=== PATIENT | male | born 1990 | race Caucasian/White ===

== ENCOUNTER 2017-10-06 21:25 | Emergency (ER) | payer BC, OTHER ==
--- NOTE | 2017-10-06 21:46 | EDM.PDOC ---
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 He denies vomiting diarrhea back or abdominal pain Review of systems: As per history of present illness and below otherwise all systems reviewed and negative. Past medical history: As per history of present illness and as reviewed below otherwise noncontributory. Surgical history: As per history of present illness and as reviewed below otherwise noncontributory. Social history: No reported history of drug or alcohol abuse. Family history: As per history of present illness and as reviewed below otherwise noncontributory. Physical exam: HEENT: Atraumatic, normocephalic, pupils reactive, negative for conjunctival pallor or scleral icterus, mucous membranes moist, throat clear, neck supple, nontender, trachea midline. Lungs: Clear to auscultation, breath sounds equal bilaterally, chest nontender. Heart: S1S2, regular, negative for clicks, rubs, or JVD. Abdomen: Soft, nondistended, nontender. Negative for masses or hepatosplenomegaly. Negative for costovertebral tenderness. Pelvis: Stable nontender. Genitourinary: Deferred. Rectal: Deferred. Extremities: Atraumatic, negative for cords or calf pain. Neurovascular unremarkable. Neuro: Awake, alert, oriented. Cranial nerves II through XII unremarkable. Cerebellum unremarkable. Motor and sensory unremarkable throughout. Exam nonfocal. Diagnostics: EBC CMP UA urine culture and sensitivity influenza screen chest x-ray Therapeutics: None Impression: #1 history of hematuria #2 history of fever Definitive disposition and diagnosis as appropriate pending reevaluation and review of above. - Related Data Allergies Allergy/AdvReac Type Severity Reaction Status Date / Time No Known Allergies Allergy Verified 10/06/17 21:47 Home Meds: Home Meds Tamsulosin [Flomax] 0.4 mg PO DAILY 10/06/17 [History] ED ROS GENERAL - Review of Systems Review Of Systems: ROS reveals no pertinent complaints other than HPI. ED EXAM, GENERAL - Physical Exam Exam: See Below (See dictation) Course - Vital Signs Last Recorded V/S: Last Vital Signs Temp 37.9 C 10/07/17 00:50 Pulse 101 H 10/07/17 00:50 Resp 18 10/07/17 00:50 BP 106/67 10/07/17 00:50 Pulse Ox 95 10/07/17 00:50 - Orders/Labs/Meds Orders: Active Orders 24 hr Category Date Time Status Chest 1V Frontal [CR] Stat Exams 10/06/17 21:48 Taken CULTURE BLOOD [BC] Stat Lab 10/07/17 00:45 Received CULTURE BLOOD [BC] Stat Lab 10/07/17 00:45 Received CULTURE URINE [RM] Stat Lab 10/06/17 21:45 Received Sodium Chloride 0.9% [Normal Saline] 1,000 ml Med 10/07/17 00:39 Active IV STAT Blood Culture x2 Reflex Set [OM.PC] Stat Oth 10/07/17 00:34 Ordered Medication Orders Sodium Chloride (Normal Saline) 1,000 mls @ 999 mls/hr IV STAT ONE Stop: 10/07/17 01:39 Last Admin: 10/07/17 00:49 Dose: 999 mls/hr Labs: Laboratory Tests 10/06/17 10/06/17 10/06/17 Range/Units 21:45 22:03 22:03 WBC 8.75 (4.0-11.0) K/uL RBC 5.48 (4.50-5.90) M/uL Hgb 17.1 H (13.0-17.0) g/dL Hct 48.2 (38.0-50.0) % MCV 88.0 (80.0-98.0) fL MCH 31.2 (27.0-32.0) pg MCHC 35.5 (31.0-37.0) g/dL RDW Std Deviation 40.0 (28.0-62.0) fl RDW Coeff of Rickey 13 (11.0-15.0) % Plt Count 210 (150-400) K/uL MPV 11.30 (7.40-12.00) fL Neut % (Auto) 83.3 H (48.0-80.0) % Lymph % (Auto) 7.5 L (16.0-40.0) % [place] % (Auto) 8.8 (0.0-15.0) % Eos % (Auto) 0.1 (0.0-7.0) % Baso % (Auto) 0.3 (0.0-1.5) % Neut # (Auto) 7.3 H (1.4-5.7) K/uL Lymph # (Auto) 0.7 (0.6-2.4) K/uL [place] # (Auto) 0.8 (0.0-0.8) K/uL Eos # (Auto) 0.0 (0.0-0.7) K/uL Baso # (Auto) 0.0 (0.0-0.1) K/uL Nucleated RBC % 0.0 /100WBC Nucleated RBCs # 0 K/uL Lactate (0.20-2.00) mmol/L Sodium 136 (136-146) mmol/L Potassium 4.1 (3.5-5.1) mmol/L Chloride 104 (98-110) mmol/L Carbon Dioxide 22 (21-31) mmol/L BUN 12 (6.0-23.0) mg/dL Creatinine 1.1 (0.6-1.5) mg/dL Est Cr Clr Drug Dosing 111.98 mL/min Estimated GFR (MDRD) > 60.0 ml/min Glucose 98 (60-110) mg/dL Calcium 9.3 (8.8-10.8) mg/dL Total Bilirubin 0.7 (0.1-1.5) mg/dL AST 34 (5-40) IU/L ALT 84 H (8-54) IU/L Alkaline Phosphatase 56 (40-150) Total Protein 7.6 (6.0-8.0) g/dL Albumin 4.3 (3.5-5.0) g/dL Globulin 3.3 (2.0-3.5) g/dL Albumin/Globulin Ratio 1.3 (1.3-2.8) Urine Color YELLOW Urine Appearance CLEAR Urine pH 6.0 (5.0-8.0) Ur Specific [place] >= 1.030 (1.001-1.035) Urine Protein NEGATIVE (NEGATIVE) mg/dL Urine Glucose (UA) NEGATIVE (NEGATIVE) mg/dL Urine Ketones NEGATIVE (NEGATIVE) mg/dL Urine Occult Blood MODERATE (NEGATIVE) Urine Nitrite NEGATIVE (NEGATIVE) Urine Bilirubin NEGATIVE (NEGATIVE) Urine Urobilinogen 0.2 (<2.0) EU/dL Ur Leukocyte Esterase NEGATIVE (NEGATIVE) Urine RBC 1-3 (0-2/HPF) Urine WBC 0-3 (0-5/HPF) Ur Epithelial Cells OCCASIONAL (NONE-FEW) Urine Bacteria FEW (NEGATIVE) Urine Mucus LIGHT (NONE-MOD) 10/07/17 Range/Units 00:43 WBC (4.0-11.0) K/uL RBC (4.50-5.90) M/uL Hgb (13.0-17.0) g/dL Hct (38.0-50.0) % MCV (80.0-98.0) fL MCH (27.0-32.0) pg MCHC (31.0-37.0) g/dL RDW Std Deviation (28.0-62.0) fl RDW Coeff of Rickey (11.0-15.0) % Plt Count (150-400) K/uL MPV (7.40-12.00) fL Neut % (Auto) (48.0-80.0) % Lymph % (Auto) (16.0-40.0) % [place] % (Auto) (0.0-15.0) % Eos % (Auto) (0.0-7.0) % Baso % (Auto) (0.0-1.5) % Neut # (Auto) (1.4-5.7) K/uL Lymph # (Auto) (0.6-2.4) K/uL [place] # (Auto) (0.0-0.8) K/uL Eos # (Auto) (0.0-0.7) K/uL Baso # (Auto) (0.0-0.1) K/uL Nucleated RBC % /100WBC Nucleated RBCs # K/uL Lactate 1.3 (0.20-2.00) mmol/L Sodium (136-146) mmol/L Potassium (3.5-5.1) mmol/L Chloride (98-110) mmol/L Carbon Dioxide (21-31) mmol/L BUN (6.0-23.0) mg/dL Creatinine (0.6-1.5) mg/dL Est Cr Clr Drug Dosing mL/min Estimated GFR (MDRD) ml/min Glucose (60-110) mg/dL Calcium (8.8-10.8) mg/dL Total Bilirubin (0.1-1.5) mg/dL AST (5-40) IU/L ALT (8-54) IU/L Alkaline Phosphatase (40-150) Total Protein (6.0-8.0) g/dL Albumin (3.5-5.0) g/dL Globulin (2.0-3.5) g/dL Albumin/Globulin Ratio (1.3-2.8) Urine Color Urine Appearance Urine pH (5.0-8.0) Ur Specific [place] (1.001-1.035) Urine Protein (NEGATIVE) mg/dL Urine Glucose (UA) (NEGATIVE) mg/dL Urine Ketones (NEGATIVE) mg/dL Urine Occult Blood (NEGATIVE) Urine Nitrite (NEGATIVE) Urine Bilirubin (NEGATIVE) Urine Urobilinogen (<2.0) EU/dL Ur Leukocyte Esterase (NEGATIVE) Urine RBC (0-2/HPF) Urine WBC (0-5/HPF) Ur Epithelial Cells (NONE-FEW) Urine Bacteria (NEGATIVE) Urine Mucus (NONE-MOD) Meds: Medications Generic Name Dose Route Start Last Admin Trade Name Freq PRN Reason Stop Dose Admin Sodium Chloride 1,000 mls @ 999 mls/hr 10/07/17 00:39 10/07/17 00:49 Normal Saline IV 10/07/17 01:39 999 mls/hr STAT ONE Administration Discontinued Medications Generic Name Dose Route Start Last Admin Trade Name Freq PRN Reason Stop Dose Admin Acetaminophen 1,000 mg 10/06/17 23:37 10/06/17 23:48 Tylenol Extra Strength PO 10/06/17 23:38 1,000 mg ONETIME ONE Administration Departure - Departure Time of Disposition: 01:38 Disposition: Home, Self-Care 01 Condition: Good Clinical Impression: Fever - Discharge Information Referrals: PCP,None [Primary Care Provider] - Forms: ED Department Discharge Additional Instructions: The following information is given to patients seen in the emergency department who are being discharged to home. This information is to outline your options for follow-up care. We provide all patients seen in our emergency department with a follow-up referral. The need for follow-up, as well as the timing and circumstances, are variable depending upon the specifics of your emergency department visit. If you don't have a primary care physician on staff, we will provide you with a referral. We always advise you to contact your personal physician following an emergency department visit to inform them of the circumstance of the visit and for follow-up with them and/or the need for any referrals to a consulting specialist. The emergency department will also refer you to a specialist when appropriate. This referral assures that you have the opportunity for followup care with a specialist. All of these measure are taken in an effort to provide you with optimal care, which includes your followup. Under all circumstances we always encourage you to contact your private physician who remains a resource for coordinating your care. When calling for followup care, please make the office aware that this follow-up is from your recent emergency room visit. If for any reason you are refused follow-up, please contact the [facility] emergency department at and asked to speak to the emergency department charge nurse. [facility] [address] [place] [id number] Push fluids follow-up primary medical doctor and/or clinic 1-2 days call to schedule appointment return as needed as discussed - My Orders Last 24 Hours: My Active Orders 10/06/17 21:45 CULTURE URINE [RM] Stat 10/06/17 21:48 Chest 1V Frontal [CR] Stat 10/07/17 00:34 Blood Culture x2 Reflex Set [OM.PC] Stat 10/07/17 00:39 Sodium Chloride 0.9% [Normal Saline] 1,000 ml IV STAT 10/07/17 00:45 CULTURE BLOOD [BC] Stat CULTURE BLOOD [BC] Stat - Assessment/Plan Last 24 Hours: My Active Orders 10/06/17 21:45 CULTURE URINE [RM] Stat 10/06/17 21:48 Chest 1V Frontal [CR] Stat 10/07/17 00:34 Blood Culture x2 Reflex Set [OM.PC] Stat 10/07/17 00:39 Sodium Chloride 0.9% [Normal Saline] 1,000 ml IV STAT 10/07/17 00:45 CULTURE BLOOD [BC] Stat CULTURE BLOOD [BC] Stat
[2017-10-06 22:38] LABS: CHLORIDE,CL 104 mmol/L (98-110); SODIUM,NA 136 mmol/L (136-146)
[2017-10-06] MEDS ORDERED: Acetaminophen 500 MG Tab PO ONE (23:37)
[2017-10-07] MEDS ORDERED: Sodium Chloride 0.9% 1,000 ML IV ONE (00:39)
--- NOTE | 2017-10-09 13:01 | CR ---
EXAM DATE: 10/06/17 PATIENT'S AGE: 27 Patient: [facility] Facility: [place], [place] Site . Site : 1990 Study: XRay Chest [id number]/26/2018 10:09:59 PM Ordering Physician: Shannon Sheldon Final Report: HISTORY: Cough and congestion. FINDINGS: AP portable chest radiograph demonstrates a normal cardiac silhouette. Pulmonary vasculature and terry are normal. No lobar consolidation or pleural effusion is seen. IMPRESSION: No acute cardiopulmonary disease. Dictated by Kim Chery MD @ 10/06/2017 10:33:04 PM Dictated by: Kim Chery MD @ 10/06/2017 22:33:13 (Electronic Signature) Report Signed by Proxy. [facility]
== END 2017-10-07 00:45 | disposition home or self-care (01) ==
LOC: MW.ED 21:25 → EDSEX 21:25 → MW.ED 10-07 00:45
DX: R50.9 Fever, unspecified (principal)
CPT/HCPCS: 36415; 71045; 80053; 81001; 83605; 85025; 87040; 87086; 87804; 96360; 99284; A9270; J7040

== ENCOUNTER 2018-01-23 22:41 | Emergency (ER) | payer OTHER, BC ==
[2018-01-23] MEDS ORDERED: Ketorolac 30 MG/ML SDV IVPUSH ONE (23:02)
[2018-01-23] MEDS ORDERED: Ondansetron 4 MG/2 ML SDV IVPUSH ONE (23:02)
[2018-01-23] MEDS ORDERED: Sodium Chloride 0.9% 1,000 ML IV ONE (23:02)
--- NOTE | 2018-01-23 23:03 | EDM.PDOC ---
ED HPI GENERAL MEDICAL PROBLEM - General Chief Complaint: Flank Pain Stated Complaint: PT HAS BACK PAIN Time Seen by Provider: 01/23/18 23:03 Source of Information: Reports: Patient - History of Present Illness INITIAL COMMENTS - FREE TEXT/NARRATIVE: HISTORY AND PHYSICAL: History of present illness: [Patient presents with 5 out of 10 right flank pain consistent with previous history of renal stones patient has passed several stones in the past. Today no fever nausea vomiting chills sweats no chest pain shortness breath headache dizziness palpitation no bowel symptoms some difficulty initiating urination ] Review of systems: As per history of present illness and below otherwise all systems reviewed and negative. Past medical history: As per history of present illness and as reviewed below otherwise noncontributory. Surgical history: As per history of present illness and as reviewed below otherwise noncontributory. Social history: No reported history of drug or alcohol abuse. Family history: As per history of present illness and as reviewed below otherwise noncontributory. Physical exam: HEENT: Atraumatic, normocephalic, pupils reactive, negative for conjunctival pallor or scleral icterus, mucous membranes moist, throat clear, neck supple, nontender, trachea midline. Lungs: Clear to auscultation, breath sounds equal bilaterally, chest nontender. Heart: S1S2, regular, negative for clicks, rubs, or JVD. Abdomen: Soft, nondistended, nontender. Negative for masses or hepatosplenomegaly. Negative for costovertebral tenderness. Pelvis: Stable nontender. Genitourinary: Deferred. Rectal: Deferred. Extremities: Atraumatic, negative for cords or calf pain. Neurovascular unremarkable. Neuro: Awake, alert, oriented. Cranial nerves II through XII unremarkable. Cerebellum unremarkable. Motor and sensory unremarkable throughout. Exam nonfocal. Diagnostics: [CBC CMP UA with culture CT abdomen pelvis with and without contrast ] Therapeutics: [1 L saline bolus Zofran 8 mg IV Toradol 30 mg IV Solu-Medrol 125 milligrams IV Flomax 0.8 mg by mouth Filter equipment Return stone the pathology [place] Zofran ] Impression: [ ureteral stone 4 mm ] Definitive disposition and diagnosis as appropriate pending reevaluation and review of above. right flank Pain Score (Numeric/FACES): 8 - Related Data Allergies Allergy/AdvReac Type Severity Reaction Status Date / Time No Known Allergies Allergy Verified 01/23/18 22:47 Home Meds: Home Meds . [No Known Home Meds] 01/23/18 [History] Past Medical History Genitourinary History: Reports: Renal Calculus Dermatologic History: Reports: None - Infectious Disease History Infectious Disease History: Reports: Chicken Pox - Past Surgical History Male Surgical History: Reports: None Social & Family History - Family History Family Medical History: Noncontributory - Caffeine Use Caffeine Use: Reports: None ED ROS GENERAL - Review of Systems Review Of Systems: ROS reveals no pertinent complaints other than HPI. ED EXAM, GENERAL - Physical Exam Exam: See Below Course - Vital Signs Last Recorded V/S: Last Vital Signs Temp 99.1 F 01/23/18 22:41 Pulse 78 01/24/18 01:13 Resp 17 01/24/18 01:13 BP 125/68 01/24/18 01:13 Pulse Ox 95 01/24/18 01:13 - Orders/Labs/Meds Orders: Active Orders 24 hr Category Date Time Status RT Aerosol Therapy [RC] ASDIRECTED Care 01/23/18 23:05 Active Abdomen Pelvis w wo Cont [CT] Stat Exams 01/23/18 23:20 Taken CULTURE URINE [RM] Stat Lab 01/23/18 23:20 Ordered UA W/MICROSCOPIC [URIN] Stat Lab 01/23/18 23:20 Ordered Labs: Laboratory Tests 01/23/18 01/23/18 01/23/18 Range/Units 21:34 21:34 23:20 WBC 7.89 (4.0-11.0) K/uL RBC 5.49 (4.50-5.90) M/uL Hgb 16.4 (13.0-17.0) g/dL Hct 47.1 (38.0-50.0) % MCV 85.8 (80.0-98.0) fL MCH 29.9 (27.0-32.0) pg MCHC 34.8 (31.0-37.0) g/dL RDW Std Deviation 40.2 (28.0-62.0) fl RDW Coeff of Rickey 13 (11.0-15.0) % Plt Count 239 (150-400) K/uL MPV 11.50 (7.40-12.00) fL Neut % (Auto) 55.5 (48.0-80.0) % Lymph % (Auto) 30.4 (16.0-40.0) % [place] % (Auto) 12.5 (0.0-15.0) % Eos % (Auto) 1.0 (0.0-7.0) % Baso % (Auto) 0.6 (0.0-1.5) % Neut # (Auto) 4.4 (1.4-5.7) K/uL Lymph # (Auto) 2.4 (0.6-2.4) K/uL [place] # (Auto) 1.0 H (0.0-0.8) K/uL Eos # (Auto) 0.1 (0.0-0.7) K/uL Baso # (Auto) 0.1 (0.0-0.1) K/uL Nucleated RBC % 0.0 /100WBC Nucleated RBCs # 0 K/uL Sodium 140 (136-148) mmol/L Potassium 3.4 L (3.5-5.1) mmol/L Chloride 103 (98-107) mmol/L Carbon Dioxide 27.3 (21.0-32.0) mmol/L BUN 21 H (7.0-18.0) mg/dL Creatinine 1.3 (0.8-1.3) mg/dL Est Cr Clr Drug Dosing 94.75 mL/min Estimated GFR (MDRD) > 60.0 ml/min Glucose 115 H (74-106) mg/dL Calcium 9.9 (8.5-10.1) mg/dL Total Bilirubin 0.6 (0.2-1.0) mg/dL AST 25 (15-37) IU/L ALT 59 (14-63) IU/L Alkaline Phosphatase 56 (46-116) U/L Total Protein 8.1 (6.4-8.2) g/dL Albumin 4.7 (3.4-5.0) g/dL Globulin 3.4 (2.0-3.5) g/dL Albumin/Globulin Ratio 1.4 (1.3-2.8) Lipase 160 (73-393) U/L Urine Color YELLOW Urine Appearance CLEAR Urine pH 6.0 (5.0-8.0) Ur Specific [place] 1.015 (1.001-1.035) Urine Protein NEGATIVE (NEGATIVE) mg/dL Urine Glucose (UA) NEGATIVE (NEGATIVE) mg/dL Urine Ketones 40 H (NEGATIVE) mg/dL Urine Occult Blood MODERATE (NEGATIVE) Urine Nitrite NEGATIVE (NEGATIVE) Urine Bilirubin MODERATE H (NEGATIVE) Urine Ictotest NEGATIVE Urine Urobilinogen 0.2 (<2.0) EU/dL Ur Leukocyte Esterase NEGATIVE (NEGATIVE) Urine RBC 3-5 (0-2/HPF) Urine WBC 0-1 (0-5/HPF) Ur Epithelial Cells RARE (NONE-FEW) Urine Bacteria RARE (NEGATIVE) Meds: Medications Discontinued Medications Generic Name Dose Route Start Last Admin Trade Name Freq PRN Reason Stop Dose Admin Sodium Chloride 1,000 mls @ 999 mls/hr 01/23/18 23:02 01/23/18 23:19 Normal Saline IV 01/24/18 00:02 999 mls/hr STAT ONE Administration Iopamidol 100 ml 01/24/18 00:33 01/24/18 00:35 Isovue-370 (76%) IVPUSH 01/24/18 00:34 100 ml ONETIME STA Administration Ketorolac Tromethamine 30 mg 01/23/18 23:02 01/23/18 23:21 Toradol IVPUSH 01/23/18 23:03 30 mg ONETIME ONE Administration Methylprednisolone Sodium Succinate 125 mg 01/24/18 00:41 01/24/18 01:10 Solu-Medrol IVPUSH 01/24/18 00:42 125 mg ONETIME ONE Administration Ondansetron HCl 8 mg 01/23/18 23:02 01/23/18 23:21 Zofran IVPUSH 01/23/18 23:03 8 mg ONETIME ONE Administration Tamsulosin HCl 0.8 mg 01/24/18 08:30 Flomax PO PCBREAKFAST RUBENS Tamsulosin HCl 0.8 mg 01/24/18 01:00 01/24/18 01:09 Flomax PO 01/24/18 01:01 0.8 mg ONETIME ONE Administration Departure - Departure Time of Disposition: 01:17 Disposition: Home, Self-Care 01 Condition: Good Clinical Impression: Ureteral stone - Discharge Information Referrals: PCP,None [Primary Care Provider] - Forms: ED Department Discharge Additional Instructions: Medication as prescribed Alcohol or driving on narcotic pain medication Filter urine and return stone to primary care or urology for testing Return if symptoms persist or worsen or if intractable pain or vomiting develo , return to ER if fever temperature over 100.4 develops [facility] [address] [place] [id number] [facility] [place] [facility] [address] [place] [id number] The following information is given to patients seen in the emergency department who are being discharged to home. This information is to outline your options for follow-up care. We provide all patients seen in our emergency department with a follow-up referral. The need for follow-up, as well as the timing and circumstances, are variable depending upon the specifics of your emergency department visit. If you don't have a primary care physician on staff, we will provide you with a referral. We always advise you to contact your personal physician following an emergency department visit to inform them of the circumstance of the visit and for follow-up with them and/or the need for any referrals to a consulting specialist. The emergency department will also refer you to a specialist when appropriate. This referral assures that you have the opportunity for follow-up care with a specialist. All of these measure are taken in an effort to provide you with optimal care, which includes your follow-up. Under all circumstances we always encourage you to contact your private physician who remains a resource for coordinating your care. When calling for follow-up care, please make the office aware that this follow-up is from your recent emergency room visit. If for any reason you are refused follow-up, please contact the [facility] emergency department at and asked to speak to the emergency department charge nurse. - My Orders Last 24 Hours: My Active Orders 01/23/18 23:05 RT Aerosol Therapy [RC] ASDIRECTED 01/23/18 23:20 Abdomen Pelvis w wo Cont [CT] Stat CULTURE URINE [RM] Stat UA W/MICROSCOPIC [URIN] Stat - Assessment/Plan Last 24 Hours: My Active Orders 01/23/18 23:05 RT Aerosol Therapy [RC] ASDIRECTED 01/23/18 23:20 Abdomen Pelvis w wo Cont [CT] Stat CULTURE URINE [RM] Stat UA W/MICROSCOPIC [URIN] Stat
[2018-01-23] MEDS ORDERED: Albuterol 0.083% 2.5 MG/3 ML Neb Soln NEB ONE (23:04)
[2018-01-23 23:52] LABS: CHLORIDE,CL 103 mmol/L (98-107); SODIUM,NA 140 mmol/L (136-148)
[2018-01-24] MEDS ORDERED: Iopamidol 755 Mg/ML 100 ML Bottle IVPUSH STA (00:33)
[2018-01-24] MEDS ORDERED: methylPREDNISolone Sodium Succinate 125 MG/2 ML SDV IVPUSH ONE (00:41)
[2018-01-24] MEDS ORDERED: Tamsulosin 0.4 MG Cap.ER PO ONE (01:00)
[2018-01-24] MEDS ORDERED: Tamsulosin 0.4 MG Cap.ER PO SCH (08:30)
--- NOTE | 2018-01-24 17:28 | CT ---
EXAM DATE: 01/23/18 PATIENT'S AGE: 27 Patient: KAREN DORANTES Facility: [place], [place] Site . Site : 1990 Study: CT Abdomen/Pelvis W/ and W/O Cont [id number]/16/2018 12:38:00 AM Ordering Physician: Herve Guerrero Final Report: INDICATION : Right flank pain. History of kidney stones. TECHNIQUE : Noncontrast and postcontrast CT scan of the abdomen and pelvis. Precontrast images followed by IV contrast Post contrast imaging in the nephrographic and delayed phases. IV Contrast: Isovue 370 100 mL Please note that all CT scans at this facility use dose modulation, iterative reconstruction and/or weight-based dosing when appropriate to reduce radiation dose to as low as reasonably achievable(ALARA). COMPARISON: None. FINDINGS : Both kidneys are normal size and position. No renal mass lesions. Mild degree of right hydronephrosis and dilatation of the right ureter. 2 millimeter right renal calculus on series 201, image 65. Obstructing right UVJ calculus measures 4 millimeters on series 201, image 134. On coronal reformat, right UVJ calculus measures 5 millimeters on series 303, image 67. On delayed imaging, symmetric excretion of contrast by the collecting systems. No significant contrast opacification of the distal right ureter. No left renal or ureteral calculi. Bladder is unremarkable Prostate is unremarkable. No abdominal or pelvic mass, ascites, or adenopathy. Bowel loops show normal caliber. Normal appendix. Liver, spleen, adrenal glands and pancreas unremarkable. No calcified gallstones. Lung bases are clear. No suspicious skeletal lesions. IMPRESSION : 1. Obstructing right UVJ calculus, measuring 4 x 5 millimeters. 2. 2 millimeter right renal calculus. 3. No obstructing left renal or ureteral calculi. 4. Normal appendix. Dictated by Tarik Gatica MD @ 01/24/2018 1:06:23 AM Please note that all CT scans at this facility use dose modulation, iterative reconstruction, and/or weight-based dosing when appropriate to reduce radiation dose to as low as reasonably achievable. Dictated by: Tarik Gatica MD @ 01/24/2018 01:06:28 (Electronic Signature) MTDD
== END 2018-01-24 01:37 | disposition home or self-care (01) ==
LOC: MW.ED 22:41
DX: N13.2 Hydronephrosis with renal and ureteral calculous obstruction (principal)
CPT/HCPCS: 36415; 74178; 80053; 81001; 83690; 85025; 87086; 96361; 96374; 96375; 99284; A9270; J1885; J2405; J2930; J7040; Q9967